=== PATIENT | male | born 1950 | race Caucasian/White ===

== ENCOUNTER 2021-11-03 17:51 | Inpatient (IN) | payer MEDICARE, MEDICAID ==
[~2021-11-03] VITALS: Ht 175.3 cm; Wt 60.3 kg
[2021-11-03] MEDS ORDERED: OLANZapine IM 10 MG VIAL. IM ONE (18:15)
[2021-11-03] MEDS ORDERED: IV NORMAL SALINE 1,000ML 1,000 ML IV ONE ×2 (18:15→22:00)
--- NOTE | 2021-11-03 18:22 | PHYS DOC ---
Past History Additional Past Medical Histor: Unable to assess Past Surgical History: Other Additional Past Surgical Histo: Unable to assess Alcohol Use: None General Adult EDM: Chief Complaint: ALTERED MENTAL STATUS HPI: HPI: 71-year-old male presents via EMS with altered mental status. His family checked on him approximately per week. They found him to be wandering in his house with just a shirt on and no pants. He was not acting normal according to them. The patient tells me that he feels fine. Some of what he says makes sense and some of it does not. He states being angry at someone for saying he needed checked out. Its not clear who he is talking about. No reported fever or chills. A more extensive history is not viable at this time. Review of Systems: Review of Systems: Constitutional: Denies fever or chills Eyes: Denies change in visual acuity HENT: Denies nasal congestion or sore throat Respiratory: Denies cough or shortness of breath Cardiovascular: Denies chest pain or edema GI: Denies abdominal pain, nausea, vomiting, bloody stools or diarrhea : Denies dysuria Musculoskeletal: Denies back pain or joint pain Integument: Denies rash Neurologic: Denies headache, focal weakness or sensory changes Endocrine: Denies polyuria or polydipsia Lymphatic: Denies swollen glands Psychiatric: Denies depression or anxiety Current Medications: Current Meds: Current Medications Medications (Trade) Dose Ordered Sig/Venkata Start Time Stop Time Status Last Admin Dose Admin Olanzapine (ZyPREXA IM) 10 mg 1X ONCE 11/03/21 18:15 11/03/21 18:16 UNV Sodium Chloride 1,000 ml @ 1,000 mls/hr 1X ONCE 11/03/21 18:15 11/03/21 19:14 UNV Physical Exam: PE: Constitutional: Well developed, well nourished, no acute distress, non-toxic appearance. Moving almost constantly.[] HENT: Normocephalic, atraumatic, bilateral external ears normal, oropharynx moist, no oral exudates, nose normal. [] Eyes: PERRLA, EOMI, conjunctiva normal, no discharge. [] Neck: Normal range of motion, no tenderness, supple, no stridor. [] Cardiovascular: Heart rate regular rhythm, no murmur [] Lungs & Thorax: Bilateral breath sounds clear to auscultation [] Abdomen: Bowel sounds normal, soft, no tenderness, no masses, no pulsatile masses. [] Skin: Warm, dry, no erythema, no rash. [] Back: No tenderness, no CVA tenderness. [] Extremities: No tenderness, no cyanosis, no clubbing, ROM intact, no edema. [] Neurologic: Alert to person, normal motor function, normal sensory function, no focal deficits noted. [] Psychologic: Affect pressured, not all statements make sense, judgement impaired, mood frustrated. [] Current Patient Data: Vital Signs: Vital Signs Date Time Temp Pulse Resp B/P (MAP) Pulse Ox O2 Delivery O2 Flow Rate FiO2 11/03/21 17:57 98.0 150 16 98 Room Air EKG: EKG: Sinus rhythm, rate 101, normal axis, no ST elevation or depression. [] Radiology/Procedures: Radiology/Procedures: [] Heart Score: C/O Chest Pain: No Risk Factors: Risk Factors: DM, Current or recent (<one month) smoker, HTN, HLP, family hist ory of CAD, obesity. Risk Scores: Score 0 - 3: 2.5% MACE over next 6 weeks - Discharge Home Score 4 - 6: 20.3% MACE over next 6 weeks - Admit for Clinical Observation Score 7 - 10: 72.7% MACE over next 6 weeks - Early Invasive Strategies Course & Med Decision Making: Course & Med Decision Making Pertinent Labs and Imaging studies reviewed. (See chart for details) Patient's labs are unremarkable. Urinalysis is negative for infection. Talk screen is positive for alcohol. Patient has persistent tachycardia and elevated blood pressure. I will give him 30mL/kg of fluids. His head CT is negative for acute findings. I admit the patient to the hospital for altered mental status. He has been given Zyprexa as well as Ativan for his agitation. Patient was comfortable while he continues to have agitation. His work-up is essentia lly negative. His head CT is negative for acute findings. His labs are unremarkable his urinalysis is negative for infection. He is positive for alcohol. We he is acting makes me wonder about withdrawal. We will continue to treat him with Ativan and admitted to the hospital. I spoke with the hospitalist, Dr. Conde and he has accepted patient for admission. The patient's alcohol was 331. [] Dragon Disclaimer: Dragon Disclaimer: This electronic medical record was generated, in whole or in part, using a voice recognition dictation system. Departure Departure: Impression: Primary Impression: AMS (altered mental status) Additional Impression: Alcohol intoxication Disposition: ADMITTED INPATIENT Admitting Physician: Haylee Conde Condition: STABLE Referrals: MELVIN OSORIO APRN (PCP) LILY CARMONA DO November 03, 2021 18:22
[2021-11-03 19:18] LABS: BASO % 0 % (0-3); EOS % 0 % (0-3); HEMATOCRIT 49.1 % (39.0-53.0); HEMOGLOBIN 16.6 g/dL (13.0-17.5); LYMPH # 1.4 x10^3/uL (1.0-4.8); LYMPH % 23 % (24-48); MEAN CORPUSCULAR HEMOGLOBIN 35 pg (25-35); MEAN CORPUSCULAR HGB CONC 34 g/dL (31-37); MEAN CORPUSCULAR VOLUME 103 fL (79-100); MONO # 0.4 x10^3/uL (0.0-1.1); MONO % 7 % (0-9); NEUT # 4.2 x10^3uL (1.8-7.7); NEUT % 70 % (31-73); PLATELET COUNT 143 x10^3/uL (140-400); RED BLOOD COUNT 4.76 x10^6/uL (4.30-5.70); RED CELL DISTRIBUTION WIDTH 13.9 % (11.5-14.5)
[2021-11-03 19:26] LABS: CREATININE 0.7 mg/dL (0.7-1.3); GFR 111.5; POTASSIUM 3.6 mmol/L (3.5-5.1)
[2021-11-03 19:32] LABS: ALBUMIN 3.7 g/dL (3.4-5.0); ALBUMIN/GLOBULIN RATIO 1.1 (1.0-1.7); TOTAL BILIRUBIN 0.5 mg/dL (0.2-1.0); TOTAL PROTEIN 7.2 g/dL (6.4-8.2)
[2021-11-03 20:51] LABS: CLARITY,URINE CLEAR; COLOR,URINE YELLOW; GLUCOSE,URINE NEG (NEG); UROBILINOGEN,URINE 0.2 mg/dL (0.2 mg/dL)
[2021-11-03 20:52] LABS: BACTERIA,URINE FEW /HPF (0-FEW); NITRITE,URINE NEG (NEG); RBC,URINE OCC /HPF (0-2); SQUAMOUS EPITHELIAL CELL,UR OCC /LPF; WBC,URINE 0 /HPF (0-4)
[2021-11-03 21:25] LABS: BARBITURATES NEG (NEG); BENZODIAZEPINES NEG (NEG); CANNABINOIDS NEG (NEG); COCAINE NEG (NEG); METHADONE NEG (NEG); OPIATES NEG (NEG); PHENCYCLIDINE NEG (NEG)
[2021-11-03 21:31] LABS: AMPHETAMINE/METHAMPHETAMINE NEG (NEG)
--- NOTE | 2021-11-03 21:50 | RAD ---
EXAM: CT Head without IV contrast CLINICAL HISTORY: Reason: AMS.PT UNABLE TO HOLD STILL.IMAGES OPTIMAL / Spl. Instructions: / History: COMPARISON: None. TECHNIQUE: Routine CT of the head without contrast. PQRS compliance statement - One or more of the following individualized dose reduction techniques wer e utilized for this study: 1. Automated exposure control 2. Adjustment of the mA and/or kV according to patient size 3. Use of iterative reconstruction technique FINDINGS: Examination is limited by motion artifact. There is no evidence of hemorrhage, mass or extra-axial fluid collection. Rao-white differentiation is maintained with no evidence of edema. Subcortical, periventricular as w ell as deep white matter foci of hypoattenuation likely changes of chronic small vessel disease. There is no mass effect or shift of the intracranial structures. The ventricles, basilar cisterns and cortical sulci are normal in size and configuration for the evelyn ents stated age. The cerebellum and brainstem are unremarkable. The calvarium demonstrates no evidence of fracture or focal lesion. Diffuse opacification right maxillary sinus. Otherwise there is normal aeration of the visualized par anasal sinuses and mastoid air cells. The visualized portions of the orbits are normal. Atherosclerotic calcifications of the intracranial internal carotid and vertebral arteries is seen. IMPRESSION: 1. No evidence for acute intracranial process. 2. White matter changes likely chronic small vessel disease. 3. Right maxillary sinus disease. Electronically signed by: Jaspal Cornelius MD (11/03/2021 9:47 PM) MARGY
[2021-11-03] MEDS ORDERED: ONDANSETRON PF 4 MG/2 ML VIAL. IVP PRN (22:30)
--- NOTE | 2021-11-03 22:32 | RAD ---
EXAM: AP View of the chest DATE: 11/03/2021 9:03 PM INDICATION: Reason: AMS.PT UNABLE TO HOLD STILL.SEVERAL IMAGES TAKEN / Spl. Instructions: / History: COMPARISON: No Prior FINDINGS: The heart is not enlarged. Aorta is tortuous. Patchy right upper lung, left upper lung and left lung base airspace opacities likely consolidative p rocess such as pneumonia. No pleural effusion or pneumothorax. IMPRESSION: Patchy bilateral airspace opacities likely consolidative process such as pneumonia. Electronically signed by: Jaspal Cornelius MD (11/03/2021 10:29 PM) MARGY
[2021-11-03] MEDS ORDERED: MVI, ADULT NO.4 WITH VIT K 10 ML, THIAMINE INJ 100 MG in IV NORMAL SALINE 1,000ML 1,000... IV ONE (23:30)
[2021-11-03] MEDS ORDERED: FOLIC ACID 1 MG TABLET PO ONE (23:30)
[2021-11-04] VITALS (8 sets, daily range): BP systolic 154–209; BP diastolic 88–140
[2021-11-04] MEDS ORDERED: MVI, ADULT NO.4 WITH VIT K 10 ML, THIAMINE INJ 100 MG, FOLIC ACID INJ 1 MG in IV NORMAL... IV ONE (09:00)
[2021-11-04 10:31] LABS: CALCIUM 8.5 mg/dL (8.5-10.1); CREATININE 0.7 mg/dL (0.7-1.3); GFR 111.5; POTASSIUM 3.4 mmol/L (3.5-5.1)
[2021-11-04] MEDS ORDERED: LORazepam 1 MG TABLET PO PRN ×2 (12:45)
[2021-11-04] MEDS ORDERED: chlordiazePOXIDE HCL 25 MG CAPSULE PO PRN ×2 (12:45)
[2021-11-04] MEDS: hydrALAZINE 20 MG/ML VIAL. IV PRN ×2 (12:53→20:05)
--- NOTE | 2021-11-04 13:32 | HP ---
DATE OF SERVICE: 11/04/2021 ADMIT DATE: 11/03/2021 HISTORY OF PRESENT ILLNESS: The patient is a 71-year-old male patient who was brought via EMS to the Emergency Room of [facility] with altered mental status. Apparently, his family has checked on him and they found him to be wandering in his house with just a shirt and no pants. He was not acting normal according to them. The patient told the ER physician that he feels fine. Apparently what he says makes sense and somewhat he said in the Emergency Room was not. He stated that he was angry at someone who said that he needs to be checked out. However, it was not clear whom he was talking about. He denied any specific complaint. The patient was not forthcoming with any information about his past medical history, surgical history or any other information and basically was extensively evaluated in the Emergency Room and has had an EKG which showed that he was in sinus rhythm at heart rate of 101, normal axis, no ST segment elevation or depression. He has had lab work including a CBC, CMP, urinalysis and toxic screen that showed that his blood alcohol level was high at 331. His urinalysis essentially unremarkable. His coronavirus by rapid antigen testing was negative and he underwent a CT scan of the head that showed no evidence of hemorrhage, mass or extraaxial fluid collection. Ashton-white differentiation is maintained, with no evidence of edema. Subcortical periventricular as well as deep white matter foci of hypoattenuation, likely changes of chronic small vessel disease. There is no mass effect or shift of the intracranial structure. The ventricles basilar cisterns and cortical sulci are normal in size and configuration for the patient's stated age. The cerebellum and brainstem are unremarkable. The calvarium demonstrates no evidence of fracture or focal lesion. Diffuse opacification of right maxillary sinus, otherwise there is normal aeration of the visualized paranasal sinuses and mastoid air cells. The visualized portions of the orbits are normal. Atherosclerotic calcification of the internal carotid, and vertebral arteries is seen. The patient was admitted with alcohol intoxication and alcohol withdrawal, was started on banana bag as well as Ativan as per alcohol withdrawal protocol. PAST MEDICAL HISTORY: Significant for hypertension. PAST SURGICAL HISTORY: Unobtainable. FAMILY HISTORY: He said he has one sister. He apparently lives here in [place] and she lives in [place]. SOCIAL HISTORY: He apparently is single, never and does not smoke or drink alcohol and specifically drinks vodka. ALLERGIES: Unobtainable. I tried to contact his sister and the pharmacy, and so far I have not been able to get through to both of them. PHYSICAL EXAMINATION: GENERAL: On arrival to the Emergency Room, the patient looked well and was clearly in no apparent respiratory distress. No pallor, jaundice, cyanosis or thyromegaly. No jugular venous distention. No limb edema. VITAL SIGNS: His heart rate on arrival was 150, blood pressure was 188/105, temperature was 98, respiratory rate was 16 and oxygen saturation was 91% on room air. HEAD, EYES, EARS, NOSE, AND THROAT: Normocephalic, atraumatic. NECK: Supple. HEART: Showed normal first and second heart sounds. No gallop or murmur. CHEST: Clear to auscultation. No crepitation or rhonchi. ABDOMEN: Scaphoid, soft, nontender. NEUROLOGIC: He is very confused; however, all his cranial nerves are intact. He moves extremities without difficulty. LABORATORY DATA: On arrival showed a white cell count of 6000, hemoglobin 16.6, hematocrit 49, MCV 103 and platelet count of 143,000 with normal manual differential. His chemistry showed a serum sodium 142, potassium 3.6, chloride 105, bicarbonate 22, anion gap of 15, BUN 10, creatinine 0.7, estimated GFR was 111 mL per minute. Her glucose 120, calcium was 9. Total bilirubin, AST, ALT, alkaline phosphatase were normal. His troponin I high sensitivity was 10. Total protein 7.2, albumin 3.7. Urinalysis was unremarkable and toxic screen was negative except for blood alcohol level of 331 mg/dL. His coronavirus by rapid antigen testing was negative. His chest x-ray showed the heart size is not enlarged, aorta is tortuous, patchy right upper lung, left upper lung and left lung base airspace opacities, likely consolidative process such as pneumonia. No pleural effusion or pneumothorax. ASSESSMENT AND PLAN: In summary, this is a 71-year-old male patient who was admitted with altered mental status secondary to alcohol intoxication. He is very confused and is not really forthcoming with any information that is useful. Plan is to continue with alcohol withdrawal protocol, banana bag. We will monitor his response on a daily basis. I will attempt to contact his sister also and [facility] to get some more information, perhaps find out who his primary care physician is to get more information about him. NOELLE/OG DR: Oscar TID: [id number]
[2021-11-04] MEDS: cloNIDine HCL 0.1 MG TABLET PO PRN (14:36)
--- NOTE | 2021-11-04 17:05 | RAD ---
EXAM: CT head without contrast INDICATION: Multiple falls COMPARISON: CT head 11/03/2021 TECHNIQUE: Axial CT imaging through the head without intravenous contrast. Sagittal and coronal refor mats were obtained. One or more of the following individualized dose reduction techniques were utilized for this examinat ion: 1. Automated exposure control 2. Adjustment of the mA and/or kV according to patient size 3. Use of iterative reconstruction technique. FINDINGS: The ventricles and sulci are moderately enlarged. There is mild periventricular white matter hypoatte nuation. No intracranial hemorrhage, acute infarct, or mass lesion. There is opacification of the rig ht maxillary sinus and partial opacification of mastoid air cells. Mild mucosal thickening in the sph enoid sinuses. Mastoid air cells are clear. The skull is intact. Globes and orbits are intact.. IMPRESSION: 1. No acute cranial abnormality. 2. Moderate volume loss and mild chronic microvascular ischemic changes. 3. Paranasal sinus disease. Electronically signed by: Feli You MD (11/04/2021 5:03 PM) [facility]
[2021-11-05] VITALS (8 sets, daily range): BP systolic 112–213; BP diastolic 75–130
[2021-11-05] MEDS: hydrALAZINE 20 MG/ML VIAL. IV PRN ×2 (01:21→23:05)
--- NOTE | 2021-11-05 02:49 | PN ---
DATE: 11/04/2021 SUBJECTIVE: The patient was admitted yesterday with altered mental status and was started on alcohol withdrawal protocol. The patient continued to be confused and has been unable to provide us all the information, I spoke with his sister, who stated that he has moved to [place] over the last 15 years and has been fairly independent, taking care of himself. He has never , has no children, and has been a smoker, he used to be a heavy drinker and drug user, but according to her, he has not been drinking a lot since he moved here to [place]. He goes to a clinic in [place], [place], but he has never had any primary care physician locally in [place]. PHYSICAL EXAM: GENERAL: When I examined him today, he was sitting, eating his lunch comfortably, in no apparent distress. There was no pallor, jaundice, cyanosis or thyromegaly. No jugular venous distention. No limb edema. VITAL SIGNS: His heart rate was 147, blood pressure was 207/143, temperature was 97.4, respiratory rate was 14 and oxygen saturation was 97% on 2 liters of oxygen. HEAD, EYES, EARS, NOSE, AND THROAT: Normocephalic, atraumatic. NECK: Supple. HEART: Showed normal first and second heart sounds. No gallop or murmur. CHEST: Clear to auscultation, no crepitation or rhonchi. ABDOMEN: Distended, soft, nontender. NEUROLOGIC: He was clearly confused; however, all his cranial nerves are grossly intact. He moves extremities without difficulty. He was using his fingers to eat his food, which is unusual with the food allover his hand and falling on his shirt and around his mouth. LABORATORY DATA: He has no lab work done this morning. ASSESSMENT AND PLAN: In summary, this is a 71-year-old male patient who was admitted with altered mental status, was found to be intoxicated with alcohol and he is now on alcohol withdrawal protocol. He is known to have high blood pressure. He is on antihypertensive medication, but does not recall the name of his medication. His sister does not know and she stated that he goes to a clinic in [place], has no local primary care physician, and his sister also stated that he had problem with his short-term memory and has been having difficulty finding words lately, although so far, he managed to live independently and took care of himself. PLAN: To continue with alcohol withdrawal protocol. I will call the [facility] pharmacy to see if we can get some more information about his medication and also if his sister gets us the number of the clinic in [place], we can call them to get some more information. BARTOLO DR: Oscar TID: [id number]
[2021-11-05] MEDS: cloNIDine HCL 0.1 MG TABLET PO PRN (04:49)
[2021-11-05 06:51] LABS: HEMATOCRIT 52.4 % (39.0-53.0); RED CELL DISTRIBUTION WIDTH 13.7 % (11.5-14.5); WHITE BLOOD COUNT 9.4 x10^3/uL (4.0-11.0)
[2021-11-05 07:02] LABS: ALBUMIN 3.6 g/dL (3.4-5.0); ALBUMIN/GLOBULIN RATIO 0.9 (1.0-1.7); CALCIUM 9.4 mg/dL (8.5-10.1); CREATININE 0.8 mg/dL (0.7-1.3); GFR 95.6; POTASSIUM 3.3 mmol/L (3.5-5.1); TOTAL BILIRUBIN 1.1 mg/dL (0.2-1.0); TOTAL PROTEIN 7.5 g/dL (6.4-8.2)
[2021-11-05] MEDS ORDERED: HALOPERIDOL LACT 5 MG/ML VIAL. IVP ONE (08:15)
[2021-11-05] MEDS ORDERED: MVI, ADULT NO.4 WITH VIT K 10 ML, THIAMINE INJ 100 MG, FOLIC ACID INJ 1 MG in IV NORMAL... IV SCH (09:00)
[2021-11-05] MEDS: POTASSIUM CL 20MEQ IN D5W 1,000 ML IV SCH (20:01)
[2021-11-06 03:32] VITALS: BP 191/112
--- NOTE | 2021-11-06 03:35 | PN ---
DATE: 11/05/2021 SUBJECTIVE: The patient is resting, slightly propped up in bed, continued to be restless, agitated, combative, requiring one-on-one sitter. He has not eaten or drank anything. PHYSICAL EXAMINATION: GENERAL: When I examined him, he looked well and was clearly in no apparent respiratory distress. No pallor, jaundice, cyanosis or thyromegaly. No jugular venous distention. No lower limb edema. VITAL SIGNS: His heart rate was 112, blood pressure was 112/75, temperature 97.8, respiratory rate was 20 and oxygen saturation was 96% on room air. HEAD, EYES, EARS, NOSE, AND THROAT: Normocephalic, atraumatic. NECK: Supple. HEART: Showed normal first and second heart sounds. No gallop, rub or murmur. CHEST: Clear to auscultation, no crepitation or rhonchi. ABDOMEN: Distended, soft, nontender. NEUROLOGIC: He is lethargic, confused, restless, attempts to get out of the bed with a very high fall risk. He fell yesterday; however, repeat CT scan did not show any evidence of intracranial pathology. His intake over the last 24 hours was 2000, no output was recorded. LABORATORY DATA: As of this morning, his white cell count was 9.4, hemoglobin 18, hematocrit 52, MCV 105 and platelet count of 134,000. His chemistry showed serum sodium is up to 148, potassium 3.3, chloride 109, bicarbonate 29, anion gap of 10, BUN 18, creatinine 0.8. Estimated GFR was 95 mL per minute. Glucose 108, calcium was 9.4. Total bilirubin, AST, ALT, alkaline phosphatase were normal. Total protein 7.5, albumin 3.6. TSH was 0.797. ASSESSMENT: 1. Alcohol intoxication, alcohol withdrawal. 2. Progressive neurodegenerative disorder. 3. Restlessness, agitation. 4. Hypernatremia. 5. Hypokalemia. PLAN: My plan is to discontinue the banana bag, start him on D5 with 20 mEq of potassium chloride. Given his agitation and restlessness and probably dementia, we will consult Dr. Aguirre to see whether he qualifies for inpatient psychiatric stabilization once his withdrawal from alcohol has completed and resolved. ANAT DR: Oscar TID: [id number]
[2021-11-06 06:21] VITALS: BP 224/117
[2021-11-06] MEDS: hydrALAZINE 20 MG/ML VIAL. IV PRN ×3 (06:25→21:13)
[2021-11-06] MEDS: POTASSIUM CL 20MEQ IN D5W 1,000 ML IV SCH (06:25)
[2021-11-06 07:07] LABS: HEMATOCRIT 49.2 % (39.0-53.0); HEMOGLOBIN 16.8 g/dL (13.0-17.5); RED BLOOD COUNT 4.71 x10^6/uL (4.30-5.70); RED CELL DISTRIBUTION WIDTH 13.9 % (11.5-14.5); WHITE BLOOD COUNT 10.6 x10^3/uL (4.0-11.0)
[2021-11-06 07:22] LABS: CALCIUM 9.2 mg/dL (8.5-10.1); CREATININE 0.7 mg/dL (0.7-1.3); GFR 111.5
[2021-11-06 11:20] VITALS: BP 203/116
[2021-11-06] MEDS ORDERED: cloNIDine TTS-2 1 PATCH PATCH TD SCH (13:00)
[2021-11-06] MEDS: POTASSIUM CL 40MEQ D5-0.45NACL 1,000 ML IV SCH (14:13)
[2021-11-06 15:10] VITALS: BP 200/99
[2021-11-06 19:27] VITALS: BP 249/140
[2021-11-06] MEDS: LABETALOL 20 MG/4 ML DISP.SYRIN. IVP PRN (20:00)
[2021-11-06 21:10] VITALS: BP 209/111
[2021-11-07] VITALS (9 sets, daily range): BP systolic 153–222; BP diastolic 81–126
--- NOTE | 2021-11-07 00:50 | PN ---
DATE: 11/06/2021 SUBJECTIVE: The patient continued to be excessively sedated. He is not eating or drinking. His electrolytes, at least her sodium has normalized to 143 mEq per liter. However, his potassium continues to be low, today is only 3 mEq per liter. PHYSICAL EXAMINATION: GENERAL: When I examined him, there was no pallor, jaundice, cyanosis or thyromegaly. No jugular venous distention. No lower limb edema. VITAL SIGNS: His heart rate was 105, blood pressure was acutely high at 203/116, temperature was 98.3, respiratory rate was 16 and oxygen saturation was 95% on room air. HEAD, EYES, EARS, NOSE, AND THROAT: Normocephalic, atraumatic. NECK: Supple. HEART: Showed normal first and second heart sounds. No gallop, rub or murmur. CHEST: Showed central trachea, equal bilateral chest expansion, air entry, vesicular breath sounds. I could not appreciate any crepitation or rhonchi. ABDOMEN: Distended, soft, nontender. NEUROLOGIC: He was heavily sedated, continued to be somewhat agitated, restless. His intake over the last 24 hours was incompletely recorded. LABORATORY DATA: Showed a white cell count of 10.6, hemoglobin 16.8, hematocrit 49, MCV 104 and platelet count of 108,000. His chemistry showed a serum sodium 143, potassium 3, chloride 108, bicarbonate 23, anion gap of 12, BUN 19, creatinine 0.7. Estimated GFR was 111 mL per minute. His glucose 103 and calcium was 9.2. Total bilirubin, AST, ALT, alkaline phosphatase were normal. Total protein 7.5, albumin 3.6. His TSH was 0.797. ASSESSMENT: 1. Alcohol intoxication, alcohol withdrawal. 2. Progressive neurodegenerative disorder. 3. Restlessness, agitation. 4. Hypernatremia. 5. Hypokalemia. PLAN: My plan is to continue to replenish his potassium. I will start him on clonidine TTS patch as he is not awake enough to take anything by mouth. We will have to discontinue all his sedation and see how he does, for us to evaluate him and see if he needs to be admitted to [facility] for inpatient psychiatric stabilization. TAE DR: Oscar TID: [id number]
[2021-11-07] MEDS: POTASSIUM CL 40MEQ D5-0.45NACL 1,000 ML IV SCH ×2 (03:40→17:30)
[2021-11-07] MEDS ORDERED: ONDANSETRON PF 4 MG/2 ML VIAL. IVP PRN (08:45)
[2021-11-07] MEDS ORDERED: MVI, ADULT NO.4 WITH VIT K 10 ML, THIAMINE INJ 100 MG, FOLIC ACID INJ 1 MG in IV NORMAL... IV SCH (09:00)
[2021-11-07] MEDS: hydrALAZINE 20 MG/ML VIAL. IV PRN ×3 (09:05→20:45)
[2021-11-07] MEDS: LABETALOL 20 MG/4 ML DISP.SYRIN. IVP PRN ×2 (09:36→12:13)
[2021-11-07 10:35] LABS: CALCIUM 9.3 mg/dL (8.5-10.1); CREATININE 0.7 mg/dL (0.7-1.3); GFR 111.5; POTASSIUM 3.4 mmol/L (3.5-5.1)
[2021-11-07] MEDS ORDERED: cloNIDine TTS-3 1 PATCH PATCH TD SCH (12:00)
--- NOTE | 2021-11-07 12:51 | RAD ---
CT HEAD/BRAIN WO History: Altered mental status. Question stroke. Comparison: CT head 11/04/2021 Technique: Noncontrast CT of the head. Findings: No hemorrhage, herniation or hydrocephalus. There is no evidence of acute territorial infarct. Redemo nstrated prominence of the ventricles and sulci consistent with diffuse volume loss and hypoattenuati on the periventricular and deep white matter consistent with chronic microvascular ischemic changes. There is opacification of the right maxillary sinus with anterior wall thickening consistent with chr onic sinusitis. Right frontal and ethmoid sinus opacification. The mastoid air cells are clear. Skull and scalp are unremarkable. Impression: 1. Chronic microvascular ischemic changes and diffuse involutional change. No acute intracranial fin dings. 2. Right paranasal sinus disease. ------ Exposure: One or more of the following individualized dose reduction techniques were utilized for thi s examination: 1. Automated exposure control 2. Adjustment of the mA and/or kV according to patient size 3. Use of iterative reconstruction technique. Electronically signed by: Jose Alfredo Navarro MD (11/07/2021 12:49 PM) [id number]
--- NOTE | 2021-11-07 15:24 | RAD ---
XR CHEST 1V History: Chest congestion and possible aspiration Comparison: 11/03/2021 Technique: Portable AP radiograph of the chest. Findings: The lungs are adequately inflated. Increased right lung hazy consolidation. Prominence of the pulmona ry vasculature is redemonstrated. No effusion or pneumothorax is identified. Stable prominent cardiom ediastinal silhouette. No acute osseous abnormality. Soft tissues are unremarkable. Impression: 1. Right lung consolidation which may represent infection or aspiration. Electronically signed by: Jose Alfredo Navarro MD (11/07/2021 3:21 PM) [id number]
[2021-11-08] VITALS (8 sets, daily range): BP systolic 143–179; BP diastolic 81–103
[2021-11-08] MEDS: hydrALAZINE 20 MG/ML VIAL. IV PRN ×3 (04:56→19:33)
[2021-11-08 06:34] LABS: HEMATOCRIT 49.7 % (39.0-53.0); HEMOGLOBIN 16.5 g/dL (13.0-17.5); RED BLOOD COUNT 4.66 x10^6/uL (4.30-5.70); RED CELL DISTRIBUTION WIDTH 14.3 % (11.5-14.5); WHITE BLOOD COUNT 9.5 x10^3/uL (4.0-11.0)
[2021-11-08 06:39] LABS: ALBUMIN 2.6 g/dL (3.4-5.0); ALBUMIN/GLOBULIN RATIO 0.6 (1.0-1.7); CALCIUM 9.1 mg/dL (8.5-10.1); CREATININE 0.7 mg/dL (0.7-1.3); GFR 111.5; POTASSIUM 3.6 mmol/L (3.5-5.1); TOTAL BILIRUBIN 1.1 mg/dL (0.2-1.0); TOTAL PROTEIN 6.7 g/dL (6.4-8.2)
[2021-11-08] MEDS: POTASSIUM CL 40MEQ D5-0.45NACL 1,000 ML IV SCH ×2 (07:24→19:32)
[2021-11-08] MEDS: PIPERACILLIN/TAZOBACTAM 3.375 GM in IV NORMAL SALINE 50ML 50 ML IV SCH ×3 (08:54→17:52)
--- NOTE | 2021-11-08 09:28 | PN ---
DATE: 11/07/2021 SUBJECTIVE: The patient has continued to be encephalopathic, restless, agitated. Blood pressure is suboptimally controlled. He is now on clonidine TTS 0.3 patch once a week. He is also on labetalol 20 mg IV every 4 hours and hydralazine 20 mg IV every 4 hours for systolic pressure more than 160. PHYSICAL EXAMINATION: GENERAL: When I examined him, he looked well and was clearly in no apparent respiratory distress. No pallor, jaundice, or cyanosis. No thyromegaly. No jugular venous distention. No limb edema. VITAL SIGNS: His heart rate was 94, blood pressure was 160/83, temperature was 97.8, respiratory rate was 17 and oxygen saturation was 92% on room air. HEAD, EYES, EARS, NOSE AND THROAT: Normocephalic, atraumatic. NECK: Supple. HEART: Showed normal first and second heart sounds. No gallop, rub or murmur. CHEST: Clear to auscultation, no crepitation or rhonchi. ABDOMEN: Scaphoid, soft, nontender, no guarding or rigidity. No organomegaly. All hernial orifice intact. Bowel sounds normal. NEUROLOGIC: He continued to be encephalopathic. He moves all extremities spontaneously. His intake and output are incompletely recorded. LABORATORY DATA: As of yesterday, his white cell count was 10.6, hemoglobin 16, hematocrit 49, MCV 104 and platelet count of 108,000. His chemistry this morning showed a serum sodium 140, potassium 3.4, chloride 106, bicarbonate 23, anion gap of 11, BUN 16, creatinine 0.7. Estimated GFR was 111 mL per minute. His glucose 135, calcium was 9.3. His Treponema pallidum antibodies are nonreactive. His coronavirus by rapid antigen testing and by PCR both undetectable. Urinalysis essentially unremarkable. ASSESSMENT: 1. Alcohol intoxication, alcohol withdrawal. 2. Progressive neurodegenerative disorder. 3. Restlessness and agitation. 4. Hypernatremia, resolved. 5. Hypokalemia, improving. PLAN: To repeat a CT scan as he continued to be encephalopathic to rule out the possibility of another stroke. I have discontinued his Ativan completely and will continue with current IV fluid and see if he can wakes up so that he can make a decision whether he needs to go [facility] stabilization. NOELLE/JOVANNI/ARMANDO DR: Oscar TID: [id number]
[2021-11-08] MEDS: LABETALOL 20 MG/4 ML DISP.SYRIN. IVP PRN ×2 (11:45→20:51)
[2021-11-09] MEDS: PIPERACILLIN/TAZOBACTAM 3.375 GM in IV NORMAL SALINE 50ML 50 ML IV SCH ×5 (00:02→23:36)
[2021-11-09] MEDS: hydrALAZINE 20 MG/ML VIAL. IV PRN ×5 (00:04→23:44)
--- NOTE | 2021-11-09 03:53 | PN ---
DATE: 11/08/2021 SUBJECTIVE: The patient is definitely more awake, alert, responding appropriately; however, he continued to be confused at times. He was evaluated by the speech therapy and apparently he is a high risk aspiration, so was kept n.p.o. for the day and the plan is for him to be evaluated again tomorrow. PHYSICAL EXAMINATION: GENERAL: When I examined him, there was no pallor, jaundice, cyanosis or thyromegaly. No jugular venous distention. No lower limb edema. VITAL SIGNS: His heart rate was 111, blood pressure was 169/82, temperature was 98.9, respiratory rate 20 and oxygen saturation was 94% on room air. HEAD, EYES, EARS, NOSE, AND THROAT: Normocephalic, atraumatic. NECK: Supple. HEART: Showed normal first and second heart sounds. No gallop, rub or murmur. CHEST: Clear to auscultation. No crepitation or rhonchi. ABDOMEN: Distended, soft, nontender. NEUROLOGIC: He is definitely more awake, alert, responding appropriately, although at times he is confused. All his cranial nerves are intact. He moves extremities without difficulty. He is able to ambulate with a walker with standby assist. His intake and output were incompletely recorded. LABORATORY DATA: This morning showed a white cell count 9.5, hemoglobin 16.5, hematocrit 50, MCV 107 and platelet count of 142,000. Serum sodium was 139, potassium 3.6, chloride 109, bicarbonate 20, anion gap of 10, BUN 17, creatinine 0.7. Estimated GFR was 111 mL per minute. His glucose 111, calcium was 9.1. Total bilirubin 1.1. AST, ALT, alkaline phosphatase were normal. Total protein 6.7, albumin was 2.6, vitamin B12 was 649. TSH was 0.797. Urinalysis essentially unremarkable. Toxic screen was positive for blood alcohol level of 331. His coronavirus by PCR and rapid antigen testing was negative. His Treponema pallidum antibody was nonreactive. His chest x-ray showed the lungs are adequately inflated, increased right lung hazy consolidation, prominence of the pulmonary vasculature is demonstrated. No effusion or pneumothorax identified. Stable prominent cardiomediastinal silhouette. No acute osseous abnormality. Soft tissues showed unremarkable. PLAN: To continue with IV fluid. Continue with n.p.o. status. Continue with IV antibiotic. The patient will be seen again tomorrow by the speech and language pathologist and hopefully he will be allowed to eat and we can switch him to oral antihypertensive medication. DAISY DR: Oscar TID: [id number]
[2021-11-09 05:00] VITALS: BP 168/93
[2021-11-09] MEDS: LABETALOL 20 MG/4 ML DISP.SYRIN. IVP PRN ×3 (05:59→23:44)
[2021-11-09 09:03] LABS: CALCIUM 8.8 mg/dL (8.5-10.1); CREATININE 0.7 mg/dL (0.7-1.3); GFR 111.5; POTASSIUM 3.5 mmol/L (3.5-5.1)
[2021-11-09] MEDS: MULTIVITAMIN with MINERAL TABLET. PO SCH (10:59)
[2021-11-09] MEDS: THIAMINE 100 MG TABLET. PO SCH (10:59)
[2021-11-09] MEDS: FOLIC ACID 1 MG TABLET PO SCH (11:01)
[2021-11-09 11:15] VITALS: BP 175/91
[2021-11-09 15:31] VITALS: BP 164/100
--- NOTE | 2021-11-09 15:59 | RAD ---
Exam: Video Swallowing Study Date: 11/09/2021 History: Clinical suspicion for aspiration, dysphagia Comparison: None Procedure: Video fluoroscopy of the neck was performed from the lateral projection following ingesti on of various consistency barium which was administered by the speech pathologist. Fluoroscopy time: 2.8 minutes Findings/ Impression: There was penetration with thin consistency barium without aspiration. Otherwise no penetration or as piration was seen. Residuals were noted. Please see speech pathology's report for further details of examination. Electronically signed by: Jaspal Cornelius MD (11/09/2021 3:34 PM) [id number]
[2021-11-09] MEDS: LACTOBACILLUS RHAMNOSUS GG 1 CAPSULE. PO SCH (19:54)
[2021-11-09 20:18] VITALS: BP 138/78
[2021-11-09 23:52] VITALS: BP 164/100
--- NOTE | 2021-11-10 00:30 | PN ---
DATE: 11/09/2021 ATTENDING PHYSICIAN: Dr. Regan. SUBJECTIVE: He remains very confused. He does not remember what is going on. He is more awake. He is hungry. OBJECTIVE FINDINGS: VITAL SIGNS: Blood pressure this morning is 163/93, pulse is 84 and regular. He is afebrile. Oxygen saturation 97% on room air. HEENT: Head is without trauma. Pupils are reactive. Sclerae nonicteric. The oropharynx is clear. NECK: Supple, no bruits. LUNGS: Good breath sounds. CARDIOVASCULAR: Showed regular heart tones. ABDOMEN: Soft. EXTREMITIES: Without edema. NEUROLOGIC: He is very confused. He is not aware of what is going or any insight. ASSESSMENT: 1. A 71-year-old gentleman with altered mentation, improving. 2. He has a significant component of Wernicke-Korsakoff syndrome. 3. Generalized debilitation. 4. Labile hypertension. 5. Risk of aspiration. PLAN: 1. We will try feeding him again today and Recs per speech therapy. 2. Blood pressure control. 3. We are working on placement. No family is here. CRISTHIAN/DAR DR: Ayanna TID: [id number] CC: TIERRA OG MD
[2021-11-10] MEDS: PIPERACILLIN/TAZOBACTAM 3.375 GM in IV NORMAL SALINE 50ML 50 ML IV SCH ×3 (05:17→18:26)
[2021-11-10 06:35] VITALS: BP 168/85
[2021-11-10 11:39] VITALS: BP 170/77
[2021-11-10] MEDS: LACTOBACILLUS RHAMNOSUS GG 1 CAPSULE. PO SCH ×2 (11:51→21:15)
[2021-11-10] MEDS: THIAMINE 100 MG TABLET. PO SCH (11:52)
[2021-11-10] MEDS: FOLIC ACID 1 MG TABLET PO SCH (11:52)
[2021-11-10] MEDS: MULTIVITAMIN with MINERAL TABLET. PO SCH (11:52)
[2021-11-10 15:00] VITALS: BP 168/70
[2021-11-10 19:20] VITALS: BP 157/90
[2021-11-10 23:00] VITALS: BP 159/92
--- NOTE | 2021-11-11 | PN ---
DATE: 11/10/2021 ATTENDING PHYSICIAN: Dr. Conde SUBJECTIVE: Much more alert today. He is less confused, but he still has the bed alarm on. He is eating independently. OBJECTIVE FINDINGS: VITAL SIGNS: Blood pressure this morning is 160/85, pulse is 80 and regular. He is afebrile. Oxygen saturation 97% on room air. HEENT: Head is without trauma. Pupils are reactive. Sclerae nonicteric. Oropharynx is clear. NECK: Supple, no bruits identified. LUNGS: Clear. CARDIOVASCULAR: Regular heart tones. ABDOMEN: Soft. EXTREMITIES: Without edema. NEUROLOGIC: Pleasantly confused, but alert. ASSESSMENT: 1. This 71-year-old gentleman has altered mentation related to alcohol use. 2. Chronic alcoholism. 3. Significant component of Wernicke-Korsakoff syndrome. 4. Generalized debilitation. 5. Labile hypertension. PLAN: 1. Recommendations per Speech Therapy. He is eating better, much more alert. 2. Blood pressure control. 3. We were working on placement. No family here. CRISTHIAN/TREVOR DR: CRISTHIAN/krista TID: [id number]
[2021-11-11] MEDS: PIPERACILLIN/TAZOBACTAM 3.375 GM in IV NORMAL SALINE 50ML 50 ML IV SCH ×3 (00:16→12:56)
[2021-11-11 08:29] VITALS: BP 185/105
[2021-11-11] MEDS: THIAMINE 100 MG TABLET. PO SCH (08:39)
[2021-11-11] MEDS: MULTIVITAMIN with MINERAL TABLET. PO SCH (08:39)
[2021-11-11] MEDS: FOLIC ACID 1 MG TABLET PO SCH (08:39)
[2021-11-11] MEDS: LACTOBACILLUS RHAMNOSUS GG 1 CAPSULE. PO SCH (08:39)
[2021-11-11] MEDS: hydrALAZINE 20 MG/ML VIAL. IV PRN (08:40)
[2021-11-11] MEDS ORDERED: ATENOLOL 50 MG TABLET PO SCH (09:00)
[2021-11-11 11:00] VITALS: BP 185/105
[2021-11-11] MEDS ORDERED: ACETAMINOPHEN 325 MG TABLET PO ONE (12:15)
[2021-11-11] MEDS ORDERED: ATEN100T PO (12:22)
[2021-11-11] MEDS ORDERED: CLON1PAT11 TD (12:24)
[2021-11-11 13:04] VITALS: BP 191/103
--- NOTE | 2021-11-11 21:01 | DS ---
DATE OF DISCHARGE: 11/11/2021 ATTENDING PHYSICIAN: Dr. Og. FINAL DISCHARGE DIAGNOSES: 1. Altered mental status, resolved. 2. Chronic alcoholism. 3. Significant Wernicke-Korsakoff syndrome. 4. Essential hypertension. 5. Noncompliance of meds. 6. Generalized debilitation. HISTORY OF PRESENT ILLNESS: The patient is a 71-year-old gentleman who drinks heavily. He was admitted with confusion and alcoholic encephalopathy. He lives alone. He has a sister who is a setter automatic spinning lathe. PHYSICAL EXAMINATION: Please see the dictated note. PERTINENT LABORATORY AND X-RAY STUDIES: On the database. He had a negative stroke workup. COURSE IN HOSPITAL: The patient was admitted. He was started on a CIWA protocol along with IV hydration, vitamin replacement, thiamine and diet was advanced. Physical therapy saw him, their recommendation is on the chart. He got better. Sensorium cleared up. He had no further DT symptoms. He was doing much better. We were in the process of arranging to get him to a subacute rehab facility on the eighth hospital day. He improved so much that his sister is going to take him home and check in on him. I recommended atenolol 100 mg p.o. daily. Strong encouragement to avoid further alcohol use, whether or not he will quit drinking remains to be seen. He will follow up with his primary care provider as scheduled. The patient was then discharged from our hospital in stable condition with explicit drug and followup care. Whether or not he once again will quit drinking and get his medications filled remains to be seen. Total discharge time was [address]: Ayanna TID: [id number] CC: TIERRA OG MD
--- NOTE | 2021-11-11 23:19 | PN ---
ATTENDING PHYSICIAN: Dr. Conde. SUBJECTIVE: He is quite alert. He is very pleasant. He remains a little bit forgetful. He has no insight. He does not remember how he got here. OBJECTIVE FINDINGS: VITAL SIGNS: Blood pressure this morning is 185/105, pulse is 90 and regular. He is afebrile. Oxygen saturation 97% on room air. HEENT: Head is without trauma. Pupils are reactive. Sclerae nonicteric. Oropharynx clear. NECK: Supple, no bruits identified. LUNGS: Clear. CARDIOVASCULAR: Regular heart tones. ABDOMEN: Soft. EXTREMITIES: Without edema. NEUROLOGIC FUNCTION: Focally intact. Speech is fluent. He is slightly confused. He is ambulating well without any ataxia. ASSESSMENT: 1. A 71-year-old gentleman with altered mentation related to alcohol use. 2. Chronic alcoholism. 3. Significant component of Wernicke-Korsakoff syndrome. 4. Essential hypertension. 5. Noncompliance of meds. PLAN: 1. Diet as tolerated. 2. I have ordered p.o. atenolol for blood pressure control. 3. We are waiting for rehab placement at a local retirement. DANTE DR: Ayanna TID: [id number]
[2021-11-12] MEDS ORDERED: ATENOLOL 50 MG TABLET PO SCH (09:00)
== END 2021-11-11 13:00 | DRG 641 ==
LOC: ER 17:51 → 1 SOUTH 22:19
PROVIDERS: ADMIT Internal Medicine; ATTEND Internal Medicine
DX: E87.0 Hyperosmolality and hypernatremia (principal); F10.239 Alcohol dependence with withdrawal, unspecified; F10.229 Alcohol dependence with intoxication, unspecified; E87.6 Hypokalemia; F10.26 Alcohol dependence with alcohol-induced persisting amnestic disorder; G31.2 Degeneration of nervous system due to alcohol; I10 Essential (primary) hypertension; Z91.14 Patient's other noncompliance with medication regimen; Z20.822 Contact with and (suspected) exposure to COVID-19
CPT/HCPCS: 36415; 70450; 71045; 74230; 80048; 80053; 80307; 81001; 82607; 84443; 84484; 85025; 85027; 86592; 87426; 92526; 93005; 96361; 96372; 96374; 96376; G0480; J0360; J1630; J2060; J2405; J2543; J3010; J3490; J7042; U0003; 92610; 92611; 97110; 97116; 97530; 97535; 99285-25; J7030